=== PATIENT | male | born 1970 | race Caucasian/White ===

== ENCOUNTER 2022-03-02 01:17 | Emergency (ER) | payer MEDICAID ==
[~2022-03-02] VITALS: Ht 177.8 cm; Wt 87.5 kg
[2022-03-02 01:33] VITALS: BP 118/84
[2022-03-02] MEDS ORDERED: TRAM-297 PO (09:36)
[2022-03-02] MEDS ORDERED: traMADol HCL 50 MG TAB PO ONE (09:45)
== END 2022-03-02 10:16 | disposition home or self-care (01) ==
LOC: ER 01:17
DX: S80.01XA Contusion of right knee, initial encounter (principal); S90.32XA Contusion of left foot, initial encounter; E11.9 Type 2 diabetes mellitus without complications; I10 Essential (primary) hypertension; W18.39XA Other fall on same level, initial encounter; Y93.89 Activity, other specified; Y92.89 Other specified places as the place of occurrence of the external cause; Y99.8 Other external cause status
CPT/HCPCS: 29505; 73562; 73630